=== PATIENT | female | born 1990 | race Caucasian/White ===

== ENCOUNTER 2017-07-18 09:45 | Emergency (ER) | payer MEDICAID ==
[2017-07-18] MEDS ORDERED: Ketorolac 10 MG Tab PO ONE (09:46)
[2017-07-18 09:53] VITALS: BP 136/84
[2017-07-18] MEDS ORDERED: Ketorolac 60 MG/2 ML SDV IM ONE (10:23)
[2017-07-18 10:42] LABS: CHLORIDE,CL 107 mEq/L (98-106); SODIUM,NA 145 mEq/L (136-145)
[2017-07-18] MEDS ORDERED: Sodium Chloride 0.9% 500 ML IV SCH (11:00)
[2017-07-18] MEDS ORDERED: Take Home: Ketorolac 10 MG Tab, 4 Tab Pack PO ONE (12:17)
--- NOTE | 2017-07-18 12:17 | EDM.PDOC ---
ED HPI GENERAL MEDICAL PROBLEM - General Chief Complaint: General Stated Complaint: sore throat, LOY[place]A, Left ear pain Time Seen by Provider: 07/18/17 10:14 Source of Information: Reports: Patient History Limitations: Reports: No Limitations - History of Present Illness INITIAL COMMENTS - FREE TEXT/NARRATIVE: Jana is a 27 year old female who presents to the ED with complaints of migraine headache and sore throat. She reports she has a history of migraines and this feels similar. No new headache characteristics. She reports she woke up with headache this morning. She reports she took some Aleve and went to work. The headache has gotten worse, so she presented to the ED. She reports she is on propranolol for prevention of migraines, but continues to get migraines. She reports she has never been prescribed a triptan medication. She normal takes NSAIDS. She reports she has seen a specialist in the past. Denies any photosensitivity, phonosensitivity, aura prior to headache. Denies any N/V/D , abdominal pain. She does report a sore throat, that has gotten worse the past few days. She reports she has had strep in the past and is concerned because she thought she saw white spots in the back of her throat. Onset: Today Duration: Getting Worse Location: Reports: Head Quality: Reports: Ache Severity: Moderate Improves with: Reports: Medication Context: Reports: Activity Associated Symptoms: Reports: Headaches, Other (sore throat). 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: NSAIDS Throat Pain Score (Numeric/FACES): 5 Left Ear Pain Score (Numeric/FACES): 6 Headache Pain Score (Numeric/FACES): 9 - Related Data Allergies Allergy/AdvReac Type Severity Reaction Status Date / Time ceftriaxone sodium Allergy Rash Verified 07/18/17 09:53 [From Rocephin] Home Meds: Home Meds levETIRAcetam [Keppra] 1,500 mg PO BID 06/03/14 [History] medroxyPROGESTERone Acetate [Depo-Provera] 150 mg IM Q90D 04/30/16 [History] Cyclobenzaprine [Flexeril] 10 mg PO TID PRN 07/08/16 [History] Naproxen Sodium [Aleve] 220 mg PO DAILY PRN 07/18/17 [History] Omeprazole 20 mg PO DAILY PRN 07/18/17 [History] Past Medical History HEENT History: Reports: Other (See Below) Other HEENT History: TONSILLITIS Gastrointestinal History: Reports: GERD, Hemorrhoids 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 OB/BYN History: 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, 2 sections, D&C Musculoskeletal History: Reports: Other (See Below) Other Musculoskeletal History: LEFT FOOT SPRAIN Neurological History: Reports: Migraines, Seizure Endocrine/Metabolic History: Reports: Obesity/BMI 30+ - Past Surgical History HEENT Surgical History: Reports: Tonsillectomy GI Surgical History: Reports: Cholecystectomy, EGD Female Surgical History: Reports: Section Social & Family History - Family History Family Medical History: Noncontributory Cardiac: Reports: Hypertension - Tobacco Use Smoking Status *Q: Former Smoker Years of Tobacco use: 14 Packs/Tins Daily: 1 Used Tobacco, but Quit: Yes Month Tobacco Last Used: 2 years ago Second Hand Smoke Exposure: Yes - Caffeine Use Caffeine Use: Reports: Energy Drinks - Alcohol Use Days Per Week of Alcohol Use: 0 - Recreational Drug Use Recreational Drug Use: No - Living Situation & Occupation Living situation: Reports: , with Family Occupation: Unemployed ED ROS GENERAL - Review of Systems Review Of Systems: ROS reveals no pertinent complaints other than HPI. ED EXAM, GENERAL - Physical Exam Exam: See Below Exam Limited By: No Limitations General Appearance: Alert, WD/WN, No Apparent Distress Eye Exam: Bilateral Eye: Normal Fundi, Normal Inspection, PERRL Ears: Normal External Exam, Normal Canal, Hearing Grossly Normal, Normal TMs Nose: Normal Inspection, Normal Mucosa, No Blood Throat/Mouth: Normal Inspection, Normal Lips, Normal Teeth, Normal Gums, Normal Oropharynx, Normal Voice, No Airway Compromise Head: Atraumatic, Normocephalic Neck: Normal Inspection, Supple, Non-Tender, Full Range of Motion Respiratory/Chest: No Respiratory Distress, Lungs Clear, Normal Breath Sounds, No Accessory Muscle Use, Chest Non-Tender Cardiovascular: Normal Peripheral Pulses, Regular Rate, Rhythm, No Edema, No Gallop, No JVD, No Murmur, No Rub Neurological: Alert, Oriented, CN II-XII Intact, Normal Cognition, Normal Gait, Normal Reflexes, No Motor/Sensory Deficits Psychiatric: Normal Affect, Normal Mood Skin Exam: Warm, Dry, Intact, Normal Color, No Rash Course - Vital Signs Last Recorded V/S: Last Vital Signs Temp 96.3 F 07/18/17 09:46 Pulse 87 07/18/17 09:46 Resp 20 07/18/17 09:46 BP 136/84 07/18/17 09:46 Pulse Ox 97 07/18/17 09:46 - Orders/Labs/Meds Labs: Laboratory Tests 07/18/17 07/18/17 Range/Units 10:30 10:30 WBC 11.1 H (5.0-10.0) 10^3/uL RBC 4.70 (4.00-5.50) 10^6/uL Hgb 11.3 L (12.0-16.0) g/dL Hct 35.7 L (37.0-47.0) % MCV 76.0 L (82.0-94.0) fL MCH 24.0 L (27.0-32.0) pg MCHC 31.7 L (33.0-38.0) g/dL RDW Coeff of Naomie 16.2 H (11.0-15.0) % Plt Count 283 (150-400) 10^3/uL Neut % (Auto) 67.8 (35-85) % Lymph % (Auto) 24.4 (10-55) % [place] % (Auto) 6.8 (0-16) % Eos % (Auto) 0.7 (0-5) % Baso % (Auto) 0.3 (0-3) % Neut # (Auto) 7.52 H (1.80-7.00) 10^3/uL Lymph # (Auto) 2.71 (1.00-4.80) 10^3/uL [place] # (Auto) 0.76 (0.00-0.80) 10^3/uL Eos # (Auto) 0.08 (0.00-0.45) 10^3/uL Baso # (Auto) 0.03 10^3/uL Sodium 145 (136-145) mEq/L Potassium 3.7 (3.5-5.0) mEq/L Chloride 107 H (98-106) mEq/L Carbon Dioxide 29 (21-32) mmol/L BUN 20 H (7-18) mg/dL Creatinine 0.7 (0.6-1.0) mg/dL Est Cr Clr Drug Dosing 119.62 mL/min Estimated GFR (MDRD) > 60 (>=60) mL/min Glucose 79 (75-99) mg/dL Calcium 9.0 (8.4-10.1) mg/dL Magnesium 1.8 (1.8-2.4) mg/dL C-Reactive Protein 1.4 H (0.2-0.8) mg/dL Meds: Medications Discontinued Medications Generic Name Dose Route Start Last Admin Trade Name Freq PRN Reason Stop Dose Admin Sodium Chloride 500 mls @ 999 mls/hr 07/18/17 11:00 07/18/17 11:17 Normal Saline IV 999 mls/hr .BOLUS MALIK Administration Ketorolac Tromethamine 60 mg 07/18/17 10:23 07/18/17 10:31 Toradol IM 07/18/17 10:24 60 mg ONETIME ONE Administration Ketorolac Tromethamine 1 packet 07/18/17 12:17 07/18/17 12:32 Take Home: Ketorolac 10 Mg, 4 Tab Pack PO 07/18/17 12:18 1 packet ONETIME ONE Administration Orphenadrine Citrate 60 mg 07/18/17 10:24 07/18/17 10:32 Norflex IM 07/18/17 10:25 60 mg STAT STA Administration - Re-Assessments/Exams Free Text/Narrative Re-Assessment/Exam: Labs staple. Discussed lab results with patient. Patient reports she is feeling better and her headache has improved after fluids and medications. Rapid strep culture negative. Departure - Departure Time of Disposition: 12:15 Disposition: Home, Self-Care 01 Condition: Good Clinical Impression: Pharyngitis Qualifiers: Pharyngitis/tonsillitis etiology: unspecified etiology Qualified Code(s): J02.9 - Acute pharyngitis, unspecified Migraine Qualifiers: Migraine type: without aura Status migrainosus presence: without status migrainosus Intractability: not intractable Qualified Code(s): G43.009 - Migraine without aura, not intractable, without status migrainosus - Discharge Information Referrals: Celio Vaughn MD [Primary Care Provider] - Forms: ED Department Discharge Additional Instructions: Toradol as needed for headache Push fluids to ensure hydration Salt water gargles Throat lozenges as needed Tylenol as needed for fever Follow up with PCP within 5 days
== END 2017-07-18 12:34 | disposition home or self-care (01) ==
LOC: CC.ED 09:45
DX: J02.9 Acute pharyngitis, unspecified (principal); G43.009 Migraine without aura, not intractable, without status migrainosus; Z88.1 Allergy status to other antibiotic agents
CPT/HCPCS: 36415; 80048; 83735; 85025; 86140; 87430; 96360; 96372; 99284; A9270; J1885; J2360; J7040

== ENCOUNTER 2018-04-30 08:03 | Emergency (ER) | payer BC, MEDICAID ==
[2018-04-30 08:10] VITALS: BP 126/83
[2018-04-30 08:44] LABS: CHLORIDE,CL 103 mEq/L (98-106); SODIUM,NA 138 mEq/L (136-145)
--- NOTE | 2018-04-30 09:00 | EDM.PDOC ---
ED HPI GENERAL MEDICAL PROBLEM - General Chief Complaint: Abdominal Pain Stated Complaint: right abd pain Time Seen by Provider: 04/30/18 08:45 Source of Information: Reports: Patient History Limitations: Reports: No Limitations - History of Present Illness INITIAL COMMENTS - FREE TEXT/NARRATIVE: Patient presents with a 12 hour history of RLQ pain. Is concerned could be her appendix. She has not had a fever. Has felt nauseated at times. No vomiting. No diarrhea or constipation concerns. Does note that passing gas seems to help relieve the pain for a short time. Had 3 normal BMs yesterday, no blood. Denies urinary complaints. Was able to eat normally yesterday without increasing any pain or nausea. No unusual food intake. Has not eaten today. Onset: Gradual Duration: Hour(s): Location: Reports: Abdomen Quality: Reports: Sharp Severity: Severe Associated Symptoms: Reports: Nausea/Vomiting. Denies: Fever/Chills, Shortness of Breath Right Lower Abdomen Pain Score (Numeric/FACES): 9 - Related Data Allergies Allergy/AdvReac Type Severity Reaction Status Date / Time ceftriaxone sodium Allergy Rash Verified 04/30/18 08:10 [From Rocephin] Home Meds: Home Meds levETIRAcetam [Keppra] 1,500 mg PO BID 06/03/14 [History] Cyclobenzaprine [Flexeril] 10 mg PO TID PRN 07/08/16 [History] Naproxen Sodium [Aleve] 220 mg PO DAILY PRN 07/18/17 [History] Omeprazole 20 mg PO DAILY PRN 07/18/17 [History] Ferrous Sulfate [High Potency Iron] 1 tab PO DAILY 04/30/18 [History] Past Medical History HEENT History: Reports: Other (See Below) Other HEENT History: TONSILLITIS Gastrointestinal History: Reports: GERD, Hemorrhoids 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, 2 sections, D&C Musculoskeletal History: Reports: Other (See Below) Other Musculoskeletal History: LEFT FOOT SPRAIN Neurological History: Reports: Migraines, Seizure Endocrine/Metabolic History: Reports: Obesity/BMI 30+ - Past Surgical History HEENT Surgical History: Reports: Tonsillectomy GI Surgical History: Reports: Cholecystectomy, EGD Female Surgical History: Reports: Section Social & Family History - Family History Family Medical History: Noncontributory Cardiac: Reports: Hypertension - Tobacco Use Smoking Status *Q: Former Smoker Used Tobacco, but Quit: Yes Month/Year Tobacco Last Used: 5 years ago - Caffeine Use Caffeine Use: Reports: Energy Drinks - Living Situation & Occupation Living situation: Reports: , with Family Occupation: Unemployed ED ROS GENERAL - Review of Systems Review Of Systems: See Below Constitutional: Denies: Fever, Chills, Weakness, Decreased Appetite HEENT: Reports: No Symptoms Respiratory: Denies: Shortness of Breath, Cough Cardiovascular: Denies: Chest Pain, Edema, Lightheadedness Endocrine: Denies: Fatigue GI/Abdominal: Reports: Abdominal Pain, Nausea. Denies: Constipation, Diarrhea, Hematochezia, Melena, Vomiting : Reports: No Symptoms Musculoskeletal: Reports: No Symptoms Skin: Reports: No Symptoms Neurological: Reports: No Symptoms Psychiatric: Reports: No Symptoms ED EXAM, GI/ABD - Physical Exam Exam: See Below Exam Limited By: No Limitations General Appearance: Alert, WD/WN, No Apparent Distress Ears: Normal External Exam, Normal TMs Nose: Normal Inspection, Normal Mucosa, No Blood Throat/Mouth: Normal Inspection, Normal Oropharynx Head: Normocephalic Neck: Normal Inspection, Supple, Non-Tender Respiratory/Chest: No Respiratory Distress, Lungs Clear, Normal Breath Sounds Cardiovascular: Regular Rate, Rhythm GI/Abdominal Exam: Normal Bowel Sounds, Soft, Tender (RLQ) Neurological: Alert, Oriented Skin Exam: Warm, Dry Course - Vital Signs Last Recorded V/S: Last Vital Signs Temp 97.7 F 04/30/18 08:05 Pulse 81 04/30/18 08:05 Resp 20 04/30/18 08:05 BP 126/83 04/30/18 08:05 Pulse Ox 99 04/30/18 08:05 - Orders/Labs/Meds Orders: Active Orders 24 hr Category Date Time Status Abdomen 2V AP Flat Upright [CR] Stat Exams 04/30/18 08:19 Taken Labs: Laboratory Tests 04/30/18 04/30/18 04/30/18 Range/Units 08:25 08:25 08:25 WBC 10.0 (5.0-10.0) 10^3/uL RBC 5.02 (4.00-5.50) 10^6/uL Hgb 12.8 (12.0-16.0) g/dL Hct 39.3 (37.0-47.0) % MCV 78.3 L (82.0-94.0) fL MCH 25.5 L (27.0-32.0) pg MCHC 32.6 L (33.0-38.0) g/dL RDW Coeff of Naomie 15.8 H (11.0-15.0) % Plt Count 267 (150-400) 10^3/uL Neut % (Auto) 70.7 (35-85) % Lymph % (Auto) 22.6 (10-55) % Floyd % (Auto) 6.1 (0-16) % Eos % (Auto) 0.4 (0-5) % Baso % (Auto) 0.2 (0-3) % Neut # (Auto) 7.09 H (1.80-7.00) 10^3/uL Lymph # (Auto) 2.27 (1.00-4.80) 10^3/uL Floyd # (Auto) 0.61 (0.00-0.80) 10^3/uL Eos # (Auto) 0.04 (0.00-0.45) 10^3/uL Baso # (Auto) 0.02 10^3/uL Sodium 138 (136-145) mEq/L Potassium 3.8 (3.5-5.0) mEq/L Chloride 103 (98-106) mEq/L Carbon Dioxide 29 (21-32) mmol/L BUN 18 (7-18) mg/dL Creatinine 0.6 (0.6-1.0) mg/dL Est Cr Clr Drug Dosing 139.56 mL/min Estimated GFR (MDRD) > 60 (>=60) mL/min Glucose 96 (75-99) mg/dL Calcium 9.4 (8.4-10.1) mg/dL Total Bilirubin 0.4 (0.0-1.0) mg/dL AST 14 L (15-37) U/L ALT 26 (12-78) U/L Alkaline Phosphatase 73 (46-116) U/L C-Reactive Protein 1.1 H (0.2-0.8) mg/dL Total Protein 7.5 (6.4-8.2) g/dL Albumin 3.7 (3.4-5.0) g/dL Amylase 52 (25-115) U/L HCG, Qual Negative Urine Color (YELLOW) Urine Appearance (CLEAR) Urine pH (4.5-8.0) Ur Specific [place] (1.003-1.020) Urine Protein (NEGATIVE) mg/dL Urine Glucose (UA) (NEGATIVE) mg/dL Urine Ketones (NEGATIVE) mg/dL Urine Occult Blood (NEGATIVE) Urine Nitrite (NEGATIVE) Urine Bilirubin (NEGATIVE) Urine Urobilinogen (0.2-1.0) EU/dL Ur Leukocyte Esterase (NEGATIVE) Urine RBC (0-5) /HPF Urine WBC (0-5) /HPF Ur Squamous Epith Cells (NOT SEEN) /HPF Urine Bacteria (NOT SEEN) /HPF 04/30/18 Range/Units 08:48 WBC (5.0-10.0) 10^3/uL RBC (4.00-5.50) 10^6/uL Hgb (12.0-16.0) g/dL Hct (37.0-47.0) % MCV (82.0-94.0) fL MCH (27.0-32.0) pg MCHC (33.0-38.0) g/dL RDW Coeff of Naomie (11.0-15.0) % Plt Count (150-400) 10^3/uL Neut % (Auto) (35-85) % Lymph % (Auto) (10-55) % Floyd % (Auto) (0-16) % Eos % (Auto) (0-5) % Baso % (Auto) (0-3) % Neut # (Auto) (1.80-7.00) 10^3/uL Lymph # (Auto) (1.00-4.80) 10^3/uL Floyd # (Auto) (0.00-0.80) 10^3/uL Eos # (Auto) (0.00-0.45) 10^3/uL Baso # (Auto) 10^3/uL Sodium (136-145) mEq/L Potassium (3.5-5.0) mEq/L Chloride (98-106) mEq/L Carbon Dioxide (21-32) mmol/L BUN (7-18) mg/dL Creatinine (0.6-1.0) mg/dL Est Cr Clr Drug Dosing mL/min Estimated GFR (MDRD) (>=60) mL/min Glucose (75-99) mg/dL Calcium (8.4-10.1) mg/dL Total Bilirubin (0.0-1.0) mg/dL AST (15-37) U/L ALT (12-78) U/L Alkaline Phosphatase (46-116) U/L C-Reactive Protein (0.2-0.8) mg/dL Total Protein (6.4-8.2) g/dL Albumin (3.4-5.0) g/dL Amylase (25-115) U/L HCG, Qual Urine Color Yellow (YELLOW) Urine Appearance Slightly cloudy (CLEAR) Urine pH 5.5 (4.5-8.0) Ur Specific [place] 1.025 H (1.003-1.020) Urine Protein Negative (NEGATIVE) mg/dL Urine Glucose (UA) Negative (NEGATIVE) mg/dL Urine Ketones Negative (NEGATIVE) mg/dL Urine Occult Blood Trace-intact H (NEGATIVE) Urine Nitrite Negative (NEGATIVE) Urine Bilirubin Negative (NEGATIVE) Urine Urobilinogen 0.2 (0.2-1.0) EU/dL Ur Leukocyte Esterase Negative (NEGATIVE) Urine RBC 0-5 (0-5) /HPF Urine WBC Not seen (0-5) /HPF Ur Squamous Epith Cells Moderate H (NOT SEEN) /HPF Urine Bacteria Few H (NOT SEEN) /HPF Meds: Medications Discontinued Medications Generic Name Dose Route Start Last Admin Trade Name Freq PRN Reason Stop Dose Admin Ketorolac Tromethamine 60 mg 04/30/18 09:00 04/30/18 09:05 Toradol IM 04/30/18 09:01 60 mg ONETIME ONE Administration - Re-Assessments/Exams Free Text/Narrative Re-Assessment/Exam: 04/30/18 Labs are all normal. Xray does show stool to the right colon. Advised to push fluids. Given Toradol for the pain. May need to consider pelvic ultrasound on Wednesday if pain persists. Departure - Departure Time of Disposition: :03 Disposition: Home, Self-Care 01 Clinical Impression: Abdominal pain - Discharge Information Referrals: PCP,None [Primary Care Provider] - Forms: ED Department Discharge Additional Instructions: 1. Push fluids 2. tylenol or ibuprofen for discomfort 3. rest 4. If still have persisting pain by Wednesday, may need to do pelvic ultrasound 5. Return if become febrile, vomiting or pain more intense. 6. Call with any questions - My Orders Last 24 Hours: My Active Orders 04/30/18 08:19 Abdomen 2V AP Flat Upright [CR] Stat - Assessment/Plan Last 24 Hours: My Active Orders 04/30/18 08:19 Abdomen 2V AP Flat Upright [CR] Stat
[2018-04-30] MEDS: Ketorolac 60 MG/2 ML SDV IM ONE (09:05)
== END 2018-04-30 09:10 | disposition home or self-care (01) ==
LOC: CC.ED 08:03
DX: R10.31 Right lower quadrant pain (principal); Z88.1 Allergy status to other antibiotic agents; Z79.899 Other long term (current) drug therapy; Z87.891 Personal history of nicotine dependence
CPT/HCPCS: 36415; 74019; 80053; 81001; 82150; 84703; 85025; 86140; 96372; 99284; J1885

== ENCOUNTER 2018-10-28 12:58 | Emergency (ER) | payer BC ==
[2018-10-28 13:12] VITALS: BP 120/61
--- NOTE | 2018-10-28 13:26 | EDM.PDOC ---
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 She states she started having contractions Wednesday after her regular OB appointment with Dr. Alexandre in [place]. She is 25 weeks presently. She admits this morning contractions became more intense and frequent , roughly every couple of minutes. She denies any bleeding. States this is her 3rd child with no prior complications with the other two. Both were delivered via . Duration: Getting Worse Location: Reports: Abdomen Lower Abdominal Pain Score (Numeric/FACES): 9 - Related Data Allergies Allergy/AdvReac Type Severity Reaction Status Date / Time ceftriaxone sodium Allergy Intermediate Rash Verified 10/28/18 13:14 [From Rocephin] Home Meds: Home Meds levETIRAcetam [Keppra] 1,500 mg PO BID 06/03/14 [History] Cyclobenzaprine [Flexeril] 10 mg PO TID PRN 07/08/16 [History] Ferrous Sulfate [High Potency Iron] 1 tab PO DAILY 04/30/18 [History] Pnv No.95/Ferrous Fum/Folic AC [ Caplet] 1 tab PO DAILY 10/21/18 [ History] Past Medical History HEENT History: Reports: Other (See Below) Other HEENT History: TONSILLITIS Gastrointestinal History: Reports: GERD, Hemorrhoids 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: 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, 2 sections, D&C Musculoskeletal History: Reports: Other (See Below) Other Musculoskeletal History: LEFT FOOT SPRAIN Neurological History: Reports: Migraines, Seizure Endocrine/Metabolic History: Reports: Obesity/BMI 30+ - Past Surgical History HEENT Surgical History: Reports: Tonsillectomy GI Surgical History: Reports: Cholecystectomy, EGD Female Surgical History: Reports: Section Social & Family History - Family History Family Medical History: Noncontributory Cardiac: Reports: Hypertension - Tobacco Use Smoking Status *Q: Former Smoker Used Tobacco, but Quit: Yes Month/Year Tobacco Last Used: 06/2012 - Caffeine Use Caffeine Use: Reports: Energy Drinks - Recreational Drug Use Recreational Drug Use: No - Living Situation & Occupation Living situation: Reports: , with Family Occupation: Unemployed ED ROS GENERAL - Review of Systems Review Of Systems: ROS reveals no pertinent complaints other than HPI. Constitutional: Reports: No Symptoms HEENT: Reports: No Symptoms Respiratory: Reports: No Symptoms Cardiovascular: Reports: No Symptoms : Reports: Other (no vaginal bleeding) Musculoskeletal: Reports: No Symptoms ED EXAM - Physical Exam Exam: See Below Exam Limited By: No Limitations General Appearance: Alert, Anxious, Mild Distress Head: Atraumatic, Normocephalic Neck: Normal Inspection, Supple Respiratory/Chest: No Respiratory Distress, Lungs Clear, Normal Breath Sounds Cardiovascular: Regular Rate, Rhythm, No Murmur GI/Abdominal Exam: Normal Bowel Sounds, Soft, Non-Tender, No Organomegaly, Other (gravid, obese). No: Rigid (Female) Exam: Other (No dilation noted, cervix is posterior.). No: Vaginal Bleeding Heart Tones: Present Heart Tones per Min: 160 Movement: Active Neurological: Alert, Oriented, Normal Cognition, No Motor/Sensory Deficits Psychiatric: Normal Affect, Anxious Skin Exam: Warm, Dry, Intact Course - Vital Signs Last Recorded V/S: Last Vital Signs Temp 100.2 F 10/28/18 13:04 Pulse 89 10/28/18 13:04 Resp 18 10/28/18 13:04 BP 120/61 10/28/18 13:04 Pulse Ox 97 10/28/18 13:04 Departure - Departure Time of Disposition: 13:30 Disposition: DC/Tfer to Acute Hospital 02 Clinical Impression: uterine contractions - Discharge Information - Problem List & Annotations (1) uterine contractions SNOMED Code(s): 152232831 Code(s): O47.9 - FALSE LABOR, UNSPECIFIED Status: Acute - Problem List Review Problem List Initiated/Reviewed/Updated: Yes - Assessment/Plan Plan: Consulted with Dr. Williamson, who did evaluate Jana. Consulted with OB in [place], Dr. Cheung, who did accept transfer. Will go directly by ambulance to [place]. Jana verbalized understanding.
== END 2018-10-28 13:38 ==
LOC: CC.ED 12:58
DX: O60.02 Preterm labor without delivery, second trimester (principal); Z3A.25 25 weeks gestation of pregnancy; Z79.899 Other long term (current) drug therapy; Z88.8 Allergy status to other drugs, medicaments and biological substances; Z87.891 Personal history of nicotine dependence
CPT/HCPCS: 99285

== ENCOUNTER 2019-09-09 09:07 | Emergency (ER) | payer BC, MEDICAID ==
[2019-09-09 09:11] VITALS: BP 143/71; PULSE 78
[2019-09-09] MEDS ORDERED: Dexamethasone 4 MG/ML SDV IM ONE (09:22)
[2019-09-09] MEDS ORDERED: Ketorolac 60 MG/2 ML SDV IM ONE (09:23)
--- NOTE | 2019-09-09 09:30 | EDM.PDOC ---
ED HPI GENERAL MEDICAL PROBLEM - General Chief Complaint: Back Pain or Injury Stated Complaint: back pain Time Seen by Provider: 09/09/19 09:15 Source of Information: Reports: Patient, Family History Limitations: Reports: No Limitations - History of Present Illness INITIAL COMMENTS - FREE TEXT/NARRATIVE: Patient to the emergency department complaining of lower back pain, the patient denies any known injury or trauma. The patient advised symptoms started 1 week ago and has seen a chiropractor since then has not been seen by medical provider. The patient advises that the pain is more on the right side and going into the right hip. The patient denies any numbness or tingling into her lower extremities she denies any perianal rectal numbness she denies any problems voiding or having bowel movement. The patient advises that she does have a history of chronic lumbar spine pain and has had Flexeril in the past. The patient denies any abdominal pain, no nausea no vomiting no diarrhea no constipation denies any UTI type symptoms. Denies any fever chills. Onset: Gradual Duration: Day(s): Location: Reports: Back Quality: Reports: Ache, Same as Previous Episode Severity: Moderate Improves with: Reports: None Worsens with: Reports: Movement Context: Denies: Trauma Associated Symptoms: Denies: Chest Pain, Cough, Fever/Chills, Headaches, Nausea/ Vomiting, Shortness of Breath, Weakness Treatments RETURNED CASE INSPECTOR: Reports: Other (see below) (none) Back Pain Score (Numeric/FACES): 10 - Related Data Allergies Allergy/AdvReac Type Severity Reaction Status Date / Time ceftriaxone sodium Allergy Intermediate Rash Verified 09/09/19 09:09 [From Rocephin] Home Meds: Home Meds levETIRAcetam [Keppra] 1,500 mg PO BID 06/03/14 [History] Cyclobenzaprine [Flexeril] 10 mg PO TID PRN 07/08/16 [History] Ferrous Sulfate [High Potency Iron] 1 tab PO DAILY 04/30/18 [History] Ketorolac [Toradol] 10 mg PO TID PRN 4 Days #12 tab 09/09/19 [Rx] predniSONE [Prednisone] 50 mg PO DAILY 5 Days #5 tablet 09/09/19 [Rx] Past Medical History HEENT History: Reports: Other (See Below) Other HEENT History: TONSILLITIS Gastrointestinal History: Reports: GERD, Hemorrhoids SAND TESTER History: Reports: Other SAND TESTER History: 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, 2 sections, D&C Musculoskeletal History: Reports: Other (See Below) Other Musculoskeletal History: LEFT FOOT SPRAIN Neurological History: Reports: Migraines, Seizure Endocrine/Metabolic History: Reports: Obesity/BMI 30+ - Past Surgical History HEENT Surgical History: Reports: Tonsillectomy GI Surgical History: Reports: Cholecystectomy, EGD Female Surgical History: Reports: Section Social & Family History - Family History Family Medical History: Noncontributory Cardiac: Reports: Hypertension - Caffeine Use Caffeine Use: Reports: Energy Drinks - Living Situation & Occupation Living situation: Reports: , with Family Occupation: Unemployed ED ROS GENERAL - Review of Systems Review Of Systems: See Below Constitutional: Reports: No Symptoms. Denies: Fever, Chills HEENT: Reports: No Symptoms Respiratory: Reports: No Symptoms. Denies: Shortness of Breath Cardiovascular: Reports: No Symptoms. Denies: Chest Pain GI/Abdominal: Reports: No Symptoms. Denies: Abdominal Pain, Constipation, Diarrhea, Nausea, Vomiting : Reports: No Symptoms. Denies: Dysuria, Flank Pain, Frequency, Pain, Urgency , Urinary Retention Musculoskeletal: Reports: Back Pain. Denies: Neck Pain Skin: Reports: No Symptoms. Denies: Bruising, Rash Neurological: Reports: No Symptoms. Denies: Headache, Numbness, Tingling, Weakness Psychiatric: Reports: No Symptoms ED EXAM,LOWER BACK PAIN/INJURY - Physical Exam Exam: See Below Exam Limited By: No Limitations General Appearance: Alert, WD/WN, Obese Ears: Normal External Exam Nose: Normal Inspection Throat/Mouth: Normal Inspection, Normal Voice, No Airway Compromise Head: Atraumatic, Normocephalic Neck: Normal Inspection, Supple, Non-Tender, Full Range of Motion Respiratory/Chest: No Respiratory Distress, Lungs Clear, Normal Breath Sounds, Chest Non-Tender Cardiovascular: Normal Peripheral Pulses, Regular Rate, Rhythm, No Murmur GI/Abdominal: Soft, Non-Tender Back Exam: Normal Inspection, Full Range of Motion, Muscle Spasm Extremities: Normal Inspection, Normal Range of Motion, Non-Tender, No Pedal Edema, Normal Capillary Refill Neurological: Alert, Normal Mood/Affect, Normal Gait, No Motor/Sensory Deficits , Oriented x 3 Psychiatric: Normal Affect, Normal Mood Skin Exam: Warm, Dry, Intact, Normal Color Course - Vital Signs Text/Narrative:: The patient was evaluated emergency department, the patient was given Decadron 10 mg IM as well as Toradol 60 mg IM. The patient will be discharged with prednisone 50 mg once a day for 5 days she will also be given Toradol 10 mg 3 times daily as needed she will be advised to follow-up the family doctor for further evaluation and treatment this coming week she is to return to the emergency department as needed Last Recorded V/S: Last Vital Signs Temp 37.1 C 09/09/19 09:09 Pulse 78 09/09/19 09:09 Resp 18 09/09/19 09:09 BP 143/71 H 09/09/19 09:09 Pulse Ox 98 09/09/19 09:09 - Orders/Labs/Meds Meds: Medications Discontinued Medications Generic Name Dose Route Start Last Admin Trade Name Freq PRN Reason Stop Dose Admin Dexamethasone 10 mg 09/09/19 09:22 09/09/19 09:34 Dexamethasone IM 09/09/19 09:23 10 mg ONETIME ONE Administration Ketorolac Tromethamine 60 mg 09/09/19 09:23 09/09/19 09:34 Toradol IM 09/09/19 09:24 60 mg ONETIME ONE Administration Departure - Departure Time of Disposition: 09:26 Disposition: Home, Self-Care 01 Condition: Good Clinical Impression: Sciatica, right side, Right sciatica - Discharge Information *PRESCRIPTION DRUG MONITORING PROGRAM REVIEWED*: Not Applicable *COPY OF PRESCRIPTION DRUG MONITORING REPORT IN PATIENT PATRICIA: Not Applicable Prescriptions: Ketorolac [Toradol] 10 mg PO TID PRN 4 Days #12 tab PRN Reason: Pain (Moderate 4-6) predniSONE [Prednisone] 50 mg PO DAILY 5 Days #5 tablet Instructions: Radicular Pain, Sciatica Referrals: PCP,None [Primary Care Provider] - Forms: ED Department Discharge Additional Instructions: Rest Warm moist heat off-and-on frequently to your lower back Follow-up with your family doctor this coming week, call Wednesday for an appointment time Return to the emergency department sooner if worse or any problems Toradol 10 mg every 8 hours as needed for pain Prednisone 50 mg 1 time a day for 5 days Sepsis Event Note - Evaluation Sepsis Screening Result: No Definite Risk - Focused Exam Vital Signs: Vital Signs Temp Pulse Resp BP Pulse Ox 09/09/19 09:09 37.1 C 78 18 143/71 H 98 Date Exam was Performed: 09/09/19 Time Exam was Performed: 14:31 - Problem List & Annotations (1) Sciatica, right side SNOMED Code(s): 48090788 Code(s): M54.31 - SCIATICA, RIGHT SIDE Status: Acute Priority: Medium - Problem List Review Problem List Initiated/Reviewed/Updated: Yes - Assessment/Plan Plan: As above
== END 2019-09-09 10:17 | disposition home or self-care (01) ==
LOC: CC.ED 09:07
DX: M54.41 Lumbago with sciatica, right side (principal); E66.9 Obesity, unspecified; G40.909 Epilepsy, unspecified, not intractable, without status epilepticus; Z88.1 Allergy status to other antibiotic agents; Z79.899 Other long term (current) drug therapy; Z68.42 Body mass index [BMI] 45.0-49.9, adult
CPT/HCPCS: 96372; 99283; J1100; J1885

== ENCOUNTER 2021-01-09 19:56 | Emergency (ER) | payer BC, MEDICAID ==
[2021-01-09 20:05] VITALS: BP 123/83; PULSE 83
[2021-01-09] MEDS ORDERED: Orphenadrine 60 MG/2 ML Inj IM ONE (20:13)
--- NOTE | 2021-01-09 20:13 | EDM.PDOC ---
ED HPI GENERAL MEDICAL PROBLEM - General Chief Complaint: Lower Extremity Injury/Pain Stated Complaint: hip pain Time Seen by Provider: 01/09/21 20:00 Source of Information: Reports: Patient, EMS History Limitations: Reports: No Limitations - History of Present Illness INITIAL COMMENTS - FREE TEXT/NARRATIVE: States that she "popped" her hip out earlier today. She was able to pop it back in. She was sitting at the table when she stood up her hip popped out and she went to her knees. She was not able to stand up and bear any weight. When it happened she states that she had a sharp pain between her hip and her spine and she had shooting pain up her back. Due to not being able to move she did call for EMS to bring her in. She denies any numbness or tingling down the leg. She has good sensation distally and good pulses. She had been given 25 mcg of Fentanyl enroute by the [facility] Onset: Sudden Location: Reports: Lower Extremity, Left Quality: Reports: Sharp, Stabbing Left Hip Pain Score (Numeric/FACES): 8 - Related Data Allergies Allergy/AdvReac Type Severity Reaction Status Date / Time ceftriaxone sodium Allergy Intermediate Rash Verified 01/09/21 20:05 [From Rocephin] Home Meds: Home Meds levETIRAcetam [Keppra] 1,500 mg PO BID 06/03/14 [History] Cyclobenzaprine [Flexeril] 10 mg PO TID PRN 07/08/16 [History] Ferrous Sulfate [High Potency Iron] 1 tab PO DAILY 04/30/18 [History] Hydrocodone/Acetaminophen [Hydrocodone-Acetamin 5-325 mg] 1 tab PO ASDIRECTED 01/09/21 [History] Past Medical History HEENT History: Reports: Other (See Below) Other HEENT History: TONSILLITIS Gastrointestinal History: Reports: GERD, Hemorrhoids 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: 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, 2 sections, D&C Musculoskeletal History: Reports: Other (See Below) Other Musculoskeletal History: LEFT FOOT SPRAIN Neurological History: Reports: Migraines, Seizure Endocrine/Metabolic History: Reports: Obesity/BMI 30+ - Past Surgical History HEENT Surgical History: Reports: Tonsillectomy GI Surgical History: Reports: Cholecystectomy, EGD Female Surgical History: Reports: Section Social & Family History - Family History Family Medical History: No Pertinent Family History Cardiac: Reports: Hypertension - Caffeine Use Caffeine Use: Reports: Energy Drinks - Living Situation & Occupation Living situation: Reports: , with Family Occupation: Unemployed Review of Systems - Review of Systems Review Of Systems: See Below Respiratory: Reports: No Symptoms Cardiovascular: Reports: No Symptoms GI/Abdominal: Reports: No Symptoms Musculoskeletal: Reports: Back Pain, Other (left hip pain.) Skin: Reports: No Symptoms ED EXAM, GENERAL - Physical Exam Exam: See Below Exam Limited By: No Limitations General Appearance: Alert, WD/WN, Moderate Distress Respiratory/Chest: No Respiratory Distress, Lungs Clear, Normal Breath Sounds Cardiovascular: Regular Rate, Rhythm Extremities: Other (Increase in pain to the left hip with any movment of the leg. Pain will go across the back also.) Neurological: Alert, Oriented Skin Exam: Warm, Dry, Intact Course - Vital Signs Last Recorded V/S: Last Vital Signs Temp 98.0 F 01/09/21 20:03 Pulse 83 01/09/21 20:03 Resp 18 01/09/21 20:03 BP 123/83 01/09/21 20:03 Pulse Ox 96 01/09/21 20:03 - Orders/Labs/Meds Orders: Active Orders 24 hr Category Date Time Status Hip Min 2V or 3V Lt [CR] Stat Exams 01/09/21 20:04 Ordered Meds: Medications Discontinued Medications Generic Name Dose Route Start Last Admin Trade Name Rossq PRN Reason Stop Dose Admin Ketorolac Tromethamine 30 mg 01/09/21 21:25 01/09/21 21:28 Ketorolac 30 Mg/Ml Sdv IVPUSH 01/09/21 21:26 30 mg ONETIME ONE Administration Orphenadrine Citrate 60 mg 01/09/21 20:13 01/09/21 20:18 Orphenadrine 60 Mg/2 Ml Inj IM 01/09/21 20:14 60 mg ONETIME ONE Administration - Re-Assessments/Exams Free Text/Narrative Re-Assessment/Exam: 01/09/21 21:33 xray does not show any fracture or dislocation. With assist of 2 We did get her up and stand and then she was able to walk and full weight bearing. She has pain more in the paraspinal muscles on the left. She does not have any buttock pain. She does continue to have pain. Toradol IV given and then saline lock discontinued. She has both hydrocodone and flexeril at home and will take them when she gets there. Will set her up for PT tomorrow to help with the muscle spasms and the pain. Departure - Departure Time of Disposition: 21:26 Disposition: Home, Self-Care 01 Condition: Good Clinical Impression: Paraspinal muscle spasm - Discharge Information *PRESCRIPTION DRUG MONITORING PROGRAM REVIEWED*: Not Applicable *COPY OF PRESCRIPTION DRUG MONITORING REPORT IN PATIENT PATRICIA: Not Applicable Instructions: Muscle Cramps and Spasms, [id number] Referrals: Celio Vaughn MD [Primary Care Provider] - Forms: ED Department Discharge Additional Instructions: Use the flexeril and the norco that you have at home for the spasm and the pain Ice to back call the clinic in the morning and let me know if you want to go to [place] or [place] to PT. [phone] call with any questions. Sepsis Event Note (ED) - Evaluation Sepsis Screening Result: No Definite Risk - Focused Exam Vital Signs: Vital Signs Temp Pulse Resp BP Pulse Ox 01/09/21 20:03 98.0 F 83 18 123/83 96 - Problem List & Annotations (1) Paraspinal muscle spasm SNOMED Code(s): 94778353 Code(s): M62.830 - MUSCLE SPASM OF BACK Status: Acute Priority: High Current Visit: Yes - Problem List Review Problem List Initiated/Reviewed/Updated: Yes - My Orders Last 24 Hours: My Active Orders 01/09/21 20:04 Hip Min 2V or 3V Lt [CR] Stat - Assessment/Plan Last 24 Hours: My Active Orders 01/09/21 20:04 Hip Min 2V or 3V Lt [CR] Stat
[2021-01-09] MEDS ORDERED: Ketorolac 30 MG/ML SDV IVPUSH ONE (21:25)
== END 2021-01-09 21:39 | disposition home or self-care (01) ==
LOC: CC.ED 19:56
DX: M62.830 Muscle spasm of back (principal); E66.9 Obesity, unspecified; Z68.42 Body mass index [BMI] 45.0-49.9, adult; Z88.1 Allergy status to other antibiotic agents
CPT/HCPCS: 96372; 96374; 99284-25; J1885; J2360

== ENCOUNTER 2021-05-09 21:14 | Emergency (ER) | payer BC, MEDICAID ==
[2021-05-09 21:22] VITALS: BP 126/80; PULSE 85
[2021-05-09] MEDS ORDERED: Ketorolac 10 MG Tab PO PRN (21:26)
--- NOTE | 2021-05-09 21:30 | EDM.PDOC ---
ED HPI GENERAL MEDICAL PROBLEM - General Chief Complaint: General Stated Complaint: "left knee buckling" Time Seen by Provider: 05/09/21 21:20 Source of Information: Reports: Patient History Limitations: Reports: No Limitations - History of Present Illness INITIAL COMMENTS - FREE TEXT/NARRATIVE: Patient presents to ER with complaints of left knee pain. States has been bothering her for a week or so now and today, both her knees popped. Went to the chiropractor and had "her knee caps put back in place as they were out" and now has pain with weight bearing. Difficulty with movement of her left knee. Feels like it will give out on her. Notes knee is "numb from the knee cap down". Feels swollen. Has not noted any injury. Tried to work her shift today at [employer] and was unable to stand the discomfort any longer. 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 Left Knee Pain Score (Numeric/FACES): 8 - Related Data Allergies Allergy/AdvReac Type Severity Reaction Status Date / Time ceftriaxone sodium Allergy Intermediate Rash Verified 05/09/21 21:19 [From Rocephin] Home Meds: Home Meds levETIRAcetam [Keppra] 1,500 mg PO BID 06/03/14 [History] Cyclobenzaprine [Flexeril] 10 mg PO TID PRN 07/08/16 [History] Ferrous Sulfate [High Potency Iron] 1 tab PO DAILY 04/30/18 [History] Hydrocodone/Acetaminophen [Hydrocodone-Acetamin 5-325 mg] 1 tab PO ASDIRECTED 01/09/21 [History] Ketorolac [Toradol] 10 mg PO Q6H PRN #16 tab 05/09/21 [Rx] Past Medical History HEENT History: Reports: Other (See Below) Other HEENT History: TONSILLITIS Gastrointestinal History: Reports: GERD, Hemorrhoids 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: 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, 2 sections, D&C Musculoskeletal History: Reports: Other (See Below) Other Musculoskeletal History: LEFT FOOT SPRAIN Neurological History: Reports: Migraines, Seizure Endocrine/Metabolic History: Reports: Obesity/BMI 30+ - Past Surgical History HEENT Surgical History: Reports: Tonsillectomy GI Surgical History: Reports: Cholecystectomy, EGD Female Surgical History: Reports: Section Social & Family History - Family History Family Medical History: No Pertinent Family History Cardiac: Reports: Hypertension - Tobacco Use Tobacco Use Status *Q: Never Tobacco User - Caffeine Use Caffeine Use: Reports: None - Living Situation & Occupation Living situation: Reports: , with Family Occupation: Unemployed ED ROS GENERAL - Review of Systems Review Of Systems: See Below Constitutional: Denies: Fever, Chills, Malaise, Weakness, Fatigue HEENT: Reports: No Symptoms Respiratory: Reports: No Symptoms Cardiovascular: Reports: No Symptoms : Reports: No Symptoms Musculoskeletal: Reports: Leg Pain, Joint Pain Skin: Reports: Other Neurological: Reports: No Symptoms ED EXAM, GENERAL - Physical Exam Exam: See Below Exam Limited By: No Limitations General Appearance: Alert, WD/WN, Mild Distress Extremities: Limited Range of Motion (resting in flexed position, has pain with extension. No varus or valgus laxity. Tender with exam to medial distal patellar region.), Other (unable to detect obvious Leonel sign as has pain with movement) Neurological: Alert, Oriented Skin Exam: Warm, Dry Course - Vital Signs Last Recorded V/S: Last Vital Signs Temp 98.5 F 05/09/21 21:19 Pulse 85 05/09/21 21:19 Resp 18 05/09/21 21:19 BP 126/80 05/09/21 21:19 Pulse Ox 98 05/09/21 21:19 - Orders/Labs/Meds Meds: Medications Discontinued Medications Generic Name Dose Route Start Last Admin Trade Name Freq PRN Reason Stop Dose Admin Ketorolac Tromethamine 10 mg 05/09/21 21:26 Ketorolac 10 Mg Tab PO 05/14/21 21:27 Q6H PRN Pain Ketorolac Tromethamine 1 packet 05/09/21 21:27 Take Home: Ketorolac 10 Mg Tab, 4 Tab Pack PO 05/09/21 21:28 ONETIME ONE Departure - Departure Time of Disposition: 21:29 Disposition: Home, Self-Care 01 Condition: Good Clinical Impression: Left knee sprain Qualifiers: Encounter type: initial encounter - Discharge Information *PRESCRIPTION DRUG MONITORING PROGRAM REVIEWED*: No *COPY OF PRESCRIPTION DRUG MONITORING REPORT IN PATIENT PATRICIA: No Prescriptions: Ketorolac [Toradol] 10 mg PO Q6H PRN #16 tab PRN Reason: Pain Instructions: Knee Sprain, Adult, [id number] Forms: ED Department Discharge Additional Instructions: 1. REst 2. Elevate to reduce swelling 3. Brace for support 4. Weight bear as tolerated 5. Follow up with primary care provider early next week if pain or limited range of motion persists Sepsis Event Note (ED) - Evaluation Sepsis Screening Result: No Definite Risk - Focused Exam Vital Signs: Vital Signs Temp Pulse Resp BP Pulse Ox 05/09/21 21:19 98.5 F 85 18 126/80 98
[2021-05-09] MEDS: Take Home: Ketorolac 10 MG Tab, 4 Tab Pack PO ONE (21:41)
== END 2021-05-09 21:55 | disposition home or self-care (01) ==
LOC: CC.ED 21:14
DX: S83.92XA Sprain of unspecified site of left knee, initial encounter (principal); K21.9 Gastro-esophageal reflux disease without esophagitis; E66.9 Obesity, unspecified; Z88.1 Allergy status to other antibiotic agents; Z68.30 Body mass index [BMI] 30.0-30.9, adult; X58.XXXA Exposure to other specified factors, initial encounter
CPT/HCPCS: 99283; A9270-GY

== ENCOUNTER 2021-06-09 07:30 | Emergency (ER) | payer BC, MEDICAID ==
[2021-06-09 07:34] VITALS: BP 132/81; PULSE 107
[2021-06-09 08:18] LABS: CHLORIDE,CL 105 mEq/L (98-106); SODIUM,NA 144 mEq/L (136-145)
--- NOTE | 2021-06-09 09:08 | EDM.PDOC ---
ED HPI GENERAL MEDICAL PROBLEM - General Chief Complaint: Respiratory Problem Stated Complaint: SOB,dizzy Time Seen by Provider: 06/09/21 07:40 Source of Information: Reports: Patient History Limitations: Reports: No Limitations - History of Present Illness INITIAL COMMENTS - FREE TEXT/NARRATIVE: Elena is a 31 year old female who presents to ER per EMS with complaints of increased shortness of breath. Was driving to work, started to feel short of breath and got dizzy so had to conductor pullman. Called 911. Sats were good for EMS. Patient relates that she has been dealing with this now for a week. Was seen initially by Gayatri Ayala, felt was chest wall in nature. Tested for covid and was negative. Treated with prednisone but did not take the medicine as went to the [place] ER that night as was still short of breath. Had a chest xray that was negative at that time but CRP was over 100 so was started on Levaquin. Sats were still normal at that time. Followed up with Dr. Vaughn on , had blood tests and repeat chest xray. Questioned LLL pneumonia and pleural effusion but d-dimer was high so was sent over to the ER so could obtain a CTA of chest. No blood clot per notes, found marked pericarditis. Started on cholchicine for this and continued her Levaquin. Has felt very fatigued. Continues to have discomfort in left chest. No fevers. No cough. Onset: Gradual Duration: Day(s): Location: Reports: Chest Quality: Reports: Ache Severity: Moderate Improves with: Reports: None Worsens with: Reports: Breathing Associated Symptoms: Reports: Chest Pain, Shortness of Breath. Denies: Confusion, Cough, Fever/Chills, Loss of Appetite, Nausea/Vomiting Treatments PSYCHOLOGY PHYSICIAN: Reports: Other Medication(s) Other Treatments PSYCHOLOGY PHYSICIAN: colchicine, hydrocodone, levaquin Left Lower Chest Pain Score (Numeric/FACES): 10 - Related Data Allergies Allergy/AdvReac Type Severity Reaction Status Date / Time ceftriaxone sodium Allergy Intermediate Rash Verified 06/09/21 07:34 [From Rocephin] Home Meds: Home Meds levETIRAcetam [Keppra] 1,500 mg PO BID 06/03/14 [History] Cyclobenzaprine [Flexeril] 10 mg PO TID PRN 12/21/16 [History] Ferrous Sulfate [High Potency Iron] 1 tab PO DAILY 04/30/18 [History] Hydrocodone/Acetaminophen [Hydrocodone-Acetamin 5-325 mg] 1 tab PO ASDIRECTED 01/09/21 [History] Colchicine 0.6 mg PO 06/09/21 [History] Levofloxacin 500 mg PO DAILY 06/09/21 [History] Past Medical History HEENT History: Reports: Other (See Below) Other HEENT History: TONSILLITIS Gastrointestinal History: Reports: GERD, Hemorrhoids PRODUCTION TRAINER History: Reports: Other PRODUCTION TRAINER History: 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, 2 sections, D&C Musculoskeletal History: Reports: Other (See Below) Other Musculoskeletal History: LEFT FOOT SPRAIN Neurological History: Reports: Migraines, Seizure Endocrine/Metabolic History: Reports: Obesity/BMI 30+ - Past Surgical History HEENT Surgical History: Reports: Tonsillectomy GI Surgical History: Reports: Cholecystectomy, EGD Female Surgical History: Reports: Section Social & Family History - Family History Family Medical History: No Pertinent Family History Cardiac: Reports: Hypertension - Tobacco Use Tobacco Use Status *Q: Never Tobacco User - Caffeine Use Caffeine Use: Reports: None - Recreational Drug Use Recreational Drug Use: No - Living Situation & Occupation Living situation: Reports: , with Family Occupation: Unemployed ED ROS GENERAL - Review of Systems Review Of Systems: See Below Constitutional: Reports: Decreased Appetite. Denies: Fever, Chills, Malaise, Weakness, Fatigue HEENT: Reports: Rhinitis. Denies: Ear Pain, Sinus Problem, Throat Pain Respiratory: Reports: Shortness of Breath, Pleuritic Chest Pain, Cough Cardiovascular: Denies: Chest Pain, Edema, Lightheadedness Endocrine: Reports: Fatigue GI/Abdominal: Reports: Decreased Appetite. Denies: Abdominal Pain, Constipation, Diarrhea, Nausea, Vomiting : Reports: No Symptoms Musculoskeletal: Reports: No Symptoms Skin: Reports: No Symptoms Neurological: Reports: Dizziness, Weakness Psychiatric: Reports: Anxiety ED EXAM, GENERAL - Physical Exam Exam: See Below Exam Limited By: No Limitations General Appearance: Alert, WD/WN, Mild Distress Ears: Normal External Exam, Normal TMs Nose: Normal Inspection, Normal Mucosa, No Blood Throat/Mouth: Normal Inspection, Normal Oropharynx Head: Normocephalic Neck: Normal Inspection, Supple, Non-Tender Respiratory/Chest: No Respiratory Distress, Lungs Clear, Normal Breath Sounds Cardiovascular: Regular Rate, Rhythm GI/Abdominal: Normal Bowel Sounds, Soft, Non-Tender Neurological: Alert, Oriented Skin Exam: Warm, Dry Course - Vital Signs Last Recorded V/S: Last Vital Signs Temp 98.8 F 06/09/21 07:33 Pulse 107 H 06/09/21 07:33 Resp 18 06/09/21 07:33 BP 132/81 06/09/21 07:33 Pulse Ox 96 06/09/21 07:33 - Orders/Labs/Meds Orders: Active Orders 24 hr Category Date Time Status Chest 2V [CR] Stat Exams 06/09/21 07:40 Ordered Labs: Laboratory Tests 06/09/21 06/09/21 Range/Units 07:51 07:51 WBC 13.3 H (4.0-11.0) 10^3/uL RBC 4.34 (4.00-5.50) x10^6/uL Hgb 10.3 L (12.0-16.0) g/dL Hct 32.1 L (37.0-47.0) % MCV 74.0 L (83.0-97.0) fL MCH 23.7 L (27.0-32.0) pg MCHC 32.1 (32.0-36.0) g/dL RDW Coeff of Naomie 15.7 H (11.0-15.0) % Plt Count 524 H (150-400) 10^3/uL Immature Gran % (Auto) 0.2 (0.0-4.9) % Neut % (Auto) 81.5 H (41-71) % Lymph % (Auto) 12.8 L (24-44) % [place] % (Auto) 5.1 (0-10) % Eos % (Auto) 0.3 (0-6) % Baso % (Auto) 0.1 (0-1) % Neut # (Auto) 10.82 H (1.80-8.00) x10^3/uL Lymph # (Auto) 1.70 (0.60-5.00) 10^3/uL [place] # (Auto) 0.67 (0.00-1.50) 10^3/uL Eos # (Auto) 0.04 (0.00-1.50) 10^3/uL Baso # (Auto) 0.01 (0.00-0.50) 10^3/uL Immature Gran # (Auto) 0.02 (0.00-0.49) 10^3/uL Sodium 144 (136-145) mEq/L Potassium 3.6 (3.5-5.0) mEq/L Chloride 105 (98-106) mEq/L Carbon Dioxide 28 (21-32) mmol/L BUN 9 (7-18) mg/dL Creatinine 0.6 (0.6-1.0) mg/dL Est Cr Clr Drug Dosing 134.53 mL/min Estimated GFR (MDRD) > 60 (>=60) mL/min Glucose 118 H D (75-99) mg/dL Calcium 9.1 (8.4-10.1) mg/dL Total Bilirubin 0.2 (0.0-1.0) mg/dL AST 14 L (15-37) U/L ALT 28 (12-78) U/L Alkaline Phosphatase 117 H (46-116) U/L Troponin I High Sens < 4 (<=51) pg/mL C-Reactive Protein 13.0 H (0.2-0.8) mg/dL NT-Pro-B Natriuret Pep 236 (0-1000) pg/mL Total Protein 7.2 (6.4-8.2) g/dL Albumin 2.5 L (3.4-5.0) g/dL - Re-Assessments/Exams Free Text/Narrative Re-Assessment/Exam: 06/09/21 09:27 Labs compared to previous evaluations in [place]. Does show improvement of WBC from 17 to 13. CRP down from 106 to 10. Chest xray does show clearance of the pleural effusion. EKG does appear unchanged. Discussed proceeding with echocardiogram here tomorrow and follow up with Dr. Vaughn. Will continue the Levaquin and Colchicine at this time. Departure - Departure Time of Disposition: 09:29 Disposition: Home, Self-Care 01 Condition: Fair Clinical Impression: LLL pneumonia, Pericarditis - Discharge Information *PRESCRIPTION DRUG MONITORING PROGRAM REVIEWED*: No *COPY OF PRESCRIPTION DRUG MONITORING REPORT IN PATIENT PATRICIA: No Instructions: Community-Acquired Pneumonia, Adult, [id number], Pericarditis Additional Instructions: 1. Rest 2. Push fluids 3. Incentive spirometry several times per day 4. Finish course of Levaquin for the pneumonia, is showing improvement 5. Continue colchicine. Will need follow up with Dr. Vaughn for length of treatment 6. Echocardiogram tomorrow. Xray will call you with a time 7. Continue [place] for pain. May need Miralax if develop constipation 8. No work until 9. Call with questions or concerns. Sepsis Event Note (ED) - Focused Exam Vital Signs: Vital Signs Temp Pulse Resp BP Pulse Ox 06/09/21 07:33 98.8 F 107 H 18 132/81 96 - My Orders Last 24 Hours: My Active Orders 06/09/21 07:40 Chest 2V [CR] Stat - Assessment/Plan Last 24 Hours: My Active Orders 06/09/21 07:40 Chest 2V [CR] Stat
== END 2021-06-09 10:15 | disposition home or self-care (01) ==
LOC: CC.ED 07:30
DX: J18.9 Pneumonia, unspecified organism (principal); I31.9 Disease of pericardium, unspecified; E66.9 Obesity, unspecified; Z88.1 Allergy status to other antibiotic agents; Z68.42 Body mass index [BMI] 45.0-49.9, adult
CPT/HCPCS: 36415; 71046; 80053; 83880; 84484; 85025; 86140; 93005; 99285-25

== ENCOUNTER 2022-01-26 17:36 | Emergency (ER) | payer OTHER, MEDICAID ==
[2022-01-26 17:51] VITALS: BP 118/54; PULSE 80
[2022-01-26] MEDS: fentaNYL 50 MCG/ML SDV IVPUSH ONE (19:21)
== END 2022-01-26 19:41 | disposition home or self-care (01) ==
LOC: CC.ED 17:36
DX: M51.16 Intervertebral disc disorders with radiculopathy, lumbar region (principal); E66.9 Obesity, unspecified; Z88.1 Allergy status to other antibiotic agents; Z68.41 Body mass index [BMI] 40.0-44.9, adult
CPT/HCPCS: 72192; 96374; 99284-25; J3010